=== PATIENT | female | born 1945 | race Caucasian/White ===

== ENCOUNTER → 2016-12-29 | Outpatient (CLI) | payer MEDICARE, OTHER ==
[~2016-12-29] MED LIST: AVAPRO PO; AVAPRO300 M1 PO; LIPITOR PO
--- NOTE | ~2016-12-29 | MY11 ---
[facility] A Service of [facility] & [facility] RADIOLOGY TEXT RESULTS PATIENT: ELIN ZAMUDIO LOCATION: [facility] : 47 UNIT #: [id number] AGE: [address]: Lars Perez MD SEX: F ORDER DR: [id number] [facility] [address] [place], [place] [address] [id number] O MR#: [id number] Acc #: [id number] NAME: ELIN ZAMUDIO : 1945 SEX: F STUDY DATE/TIME: 12/29/2016 7:31 UNIT: [facility] ROOM: STUDY DESCRIPTION: MY Mammogram Screening Dig Saeed Attending Physician: Lars Perez M.D. Referring Physician: Lars Perez M.D. Ordering Physician: Lars Perez M.D. Primary Care Physician: Lars Perez M.D. MEDICAL IMAGING REPORT This report is preliminary unless electronic signature is present EXAM Bilateral digital screening mammogram with CAD, 12/29/2016. HISTORY Family history of breast cancer in 2 sisters, at age of 22 and 60. No personal history of breast cancer. No current complaints. COMPARISON Bilateral screening mammogram 12/11/2015, 12/07/2014, 12/02/2013. FINDINGS CC and MLO views were obtained of each breast, utilizing digital technique, and reviewed with an FDA-approved CAD device. Scattered fibroglandular densities are present bilaterally. No new or suspicious nodules identified. There is no architectural distortion. No suspicious cluster of microcalcifications. Fibronodular density along the posterior nipple line, left breast, on CC view, and another fibronodular density in the lateral hemisphere, central third, left breast on the CC view appears stable since 12/02/2013, in keeping with benign findings. IMPRESSION Benign findings. Routine bilateral screening mammogram recommended in 1 year. Patients over the age of 40 are entered into a reminder system with target due date for the next mammogram. A result letter will also be sent to the patient. BIRADS: 2 Benign finding. Dictated by... Jennifer Merida M.D. [facility]. [facility] A Service of [facility] & [facility] RADIOLOGY TEXT RESULTS PATIENT: ELIN ZAMUDIO LOCATION: [facility] #: [id number] : 47 UNIT #: [id number] AGE: [address]: Lars Perez MD SEX: F ORDER DR: THIS IS AN ELECTRONICALLY VERIFIED REPORT Jennifer Merida M.D. at 12/30/2016 7:08 AM FABY/nan TD: 12/29/2016 12:29 JOB #: [id number] MEDICAL IMAGING REPORT Page 1 of 1 COPY
== END | disposition home or self-care (01) ==
LOC: CWCC 07:16
DX: Z12.31 Encounter for screening mammogram for malignant neoplasm of breast (principal); Z80.3 Family history of malignant neoplasm of breast
CPT/HCPCS: G0202